=== PATIENT | female | born 1940 | race Caucasian/White ===

== ENCOUNTER 2017-05-18 14:01 | Emergency (ER) | payer MEDICARE ==
[~2017-05-18] VITALS: Ht 165.1 cm; Wt 77.1 kg
[~2017-05-18 14:01] MED LIST: AMLO5TAB2 PO; CYAN10009 PO; DIGO125T PO; GABA400C PO; LOSA100T15 PO; METF500T4 PO; METO-306 PO; OMEG1CAP55 PO; OXYB5TAB11 PO; POTA10TA10 PO; PRAV20TA4 PO; THIO100C2 PO; WARF2.5T47 PO
[2017-05-18] MEDS ORDERED: CEPH500C2 PO (14:28)
--- NOTE | 2017-05-18 14:30 | NUR ---
PATIENT STATES SHE IS "BLEEDING FROM HER TOOTH IMPLANT".
[2017-05-18] MEDS ORDERED: LOSA25TA13 PO (14:53)
[2017-05-18] MEDS ORDERED: DILT120C2 PO (14:53)
[2017-05-18] MEDS ORDERED: WARF5TAB77 PO (14:53)
[2017-05-18] MEDS ORDERED: OMEP1CAP2 PO (14:53)
[2017-05-18] MEDS ORDERED: HYDR25TA4 PO (14:53)
[2017-05-18 15:16] LABS: BASOPHILS # (AUTO) 0.1 K/uL (0.0-8.0); BASOPHILS % (AUTO) 0.8 % (0.0-2.0); EOSINOPHILS # (AUTO) 0.1 K/uL (0.0-0.7); EOSINOPHILS % (AUTO) 1.8 % (0.0-7.0); HEMATOCRIT 35.6 % (37-47); HEMOGLOBIN 11.4 G/DL (12.0-16.0); LYMPHOCYTES # (AUTO) 1.7 K/UL (0.8-4.8); LYMPHOCYTES % (AUTO) 20.5 % (20.5-51.5); MEAN CORPUSCULAR HEMOGLOBIN 27.6 UUG (27.0-31.0); MEAN CORPUSCULAR HGB CONC 32 g/dL (32.0-37.0); MONOCYTES # (AUTO) 0.7 K/UL (0.1-1.30); MONOCYTES % (AUTO) 9.2 % (0.0-11.0); NEUTROPHILS # (AUTO) 5.5 K/UL (1.8-8.9); NEUTROPHILS % (AUTO) 67.7 % (38.5-71.5); PLATELET COUNT (AUTO) 235 K/UL (150-450); RED BLOOD CELL COUNT(AUTO) 4.14 MIL/UL (4.2-5.4); WHITE BLOOD COUNT (AUTO) 8.1 K/UL (4.0-11.2)
--- NOTE | 2017-05-18 15:44 | NUR ---
PATIENT IS AWAKE AND ALERT WITH NO NEW COMPLAINTS.
--- NOTE | 2017-05-18 17:44 | NUR ---
PATIENT IS STILL HAVING OOZING OF BLOOD FROM HER MOUTH. DR TU FLYNN.
--- NOTE | 2017-05-18 18:26 | NUR ---
BLEEDING HAS STOPPED. DC AND FOLLOW UP INSTRUCTIONS GIVEN AND EXPLAINED TO PATIENT WHO STATES SHE UNDERSTANDS ALL INSTRUCTIONS.
[2017-05-18 18:27] VITALS: BP 144/85
== END 2017-05-18 18:29 | disposition home or self-care (01) ==
LOC: ER 14:03
DX: K91.840 Postprocedural hemorrhage of a digestive system organ or structure following a digestive system procedure (principal); Z88.0 Allergy status to penicillin; Z79.01 Long term (current) use of anticoagulants; I10 Essential (primary) hypertension; E11.9 Type 2 diabetes mellitus without complications; I48.91 Unspecified atrial fibrillation
CPT/HCPCS: 36415; 85025; 85610; A4663